=== PATIENT | female | born 1985 | race Caucasian/White ===

== ENCOUNTER 2021-04-04 11:17 | Emergency (ER) | payer OTHER, MEDICAID, SELFPAY ==
[2021-04-04 11:52] VITALS: BP 145/98; PULSE 93; RESP 18; TEMP 36.6; O2SAT 99; BMI 23.8
[2021-04-04] MEDS: diazePAM 5 MG TABLET 10 MG PO ×2 (13:13→14:40)
[2021-04-04] MEDS: ONDANSETRON 4 MG ODT SL (13:13)
[2021-04-04 13:40] LABS: Bacteria Urine Many (>30); Culture Indicated Urine Specimen Cultured; RBC Urine 5-10/HPF (0-5/HPF); Squamous Epithelial Cell Urine 1-5 /HPF (0-5/HPF); WBC Urine 30-100/HPF (0-5/HPF)
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
[2021-04-04 14:23] LABS: HCG Quantitative /Beta subunit 173.6 mIU/mL
[2021-04-04] MEDS: NITROFURANTOIN ER 100 MG CAPSULE PO (14:40)
== END 2021-04-04 15:01 | disposition home or self-care (01) ==
PROVIDERS: Emergency Provider Nurse Practitioner Critical Care Medicine
DX: Z76.0 Encounter for issue of repeat prescription (principal); R11.2 Nausea with vomiting, unspecified; O03.9 Complete or unspecified spontaneous abortion without complication
CPT/HCPCS: 36415; 81003; 81015; 81025; 84702; 87077; 87086; 87147; 99283

== ENCOUNTER → 2021-04-26 08:37 | Outpatient (CLI) | payer OTHER, MEDICAID, SELFPAY ==
[2021-04-26 09:43] LABS: Hematocrit 37.1 % (36-46); Hemoglobin 12.4 g/dL (12.0-16.0); Mean Corpuscular HGB Conc 33.5 % (30-36); Mean Corpuscular Hemoglobin 31.4 PG (26-34); Mean Corpuscular Volume 93.6 fL (80-100); Platelet Count 244 X10^3/uL (150-400); Red Blood Cell Count 3.96 X10^6/uL (4.0-5.2); Red Cell Distribution Width 13.2 % (11.6-14.8); White Blood Cell Count 4.7 X10^3/uL (4.5-11.0)
[2021-04-26 10:21] LABS: Alanine Aminotransferase 10 IU/L (<35); Albumin Globulin Ratio 1.5 (1.0-2.8); Alkaline Phosphatase 70 U/L (38-126); Aspartate Aminotransferase 16 IU/L (14-36); BUN Creatinine Ratio 13.3 (6-22); Bilirubin Total 0.2 mg/dL (0.2-1.3); Blood Urea Nitrogen 10 mg/dL (7-17); Calcium 8.5 mg/dL (8.4-10.2); Carbon Dioxide 28 mmol/L (22-32); Chloride 102 mmol/L (98-107); Cholesterol 160 mg/dL (140-199); Estimated Glomerular Filt Rate > 60.0 mL/min (>60); Globulin 2.7 g/dL (1.7-4.1); Glucose 99 mg/dL (70-100); HDL Cholesterol 71 mg/dL (40-60); HEMOLYSIS < 15 (0-50); LDL Cholesterol Calculated 80 mg/dL (<100); Potassium 3.7 mmol/L (3.4-5.1); Sodium 137 mmol/L (137-145); Total Protein 6.7 g/dL (6.3-8.2); Triglycerides 44 mg/dL (35-150)
[2021-04-26 10:37] LABS: Vitamin D 25 Hydroxy (D3) 36.9 ng/mL (30.0-100.0)
[2021-04-26 10:52] LABS: TSH w/ Reflex to FT4 1.67 uIU/mL (0.47-4.68)
== END ==
PROVIDERS: PCP Registered Nurse Diabetes Educator; Referring Provider Registered Nurse Diabetes Educator; Visit Provider Registered Nurse Diabetes Educator
DX: E55.9 Vitamin D deficiency, unspecified (principal); F33.1 Major depressive disorder, recurrent, moderate; R79.89 Other specified abnormal findings of blood chemistry; Z00.00 Encounter for general adult medical examination without abnormal findings
CPT/HCPCS: 36415; 80053; 80061; 82306; 84443; 85027

== ENCOUNTER 2021-06-18 19:00 | Emergency (ER) | payer OTHER, MEDICAID, SELFPAY ==
[2021-06-18 19:28] VITALS: BP 128/61; PULSE 85; RESP 24; TEMP 36.2; O2SAT 100
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
[2021-06-18 21:07] VITALS: BP 114/59; PULSE 63; O2SAT 98
[2021-06-18] MEDS: CYCLOBENZAPRINE 10 MG PREPACK 1 BOTTLE MISC (21:08)
== END 2021-06-18 21:09 | disposition home or self-care (01) ==
PROVIDERS: Emergency Provider Emergency Medicine; PCP Registered Nurse Diabetes Educator
DX: M54.6 Pain in thoracic spine (principal)
CPT/HCPCS: 99281

== ENCOUNTER → 2021-08-23 11:03 | Outpatient (CLI) | payer OTHER, MEDICAID, SELFPAY ==
--- NOTE | 2021-08-23 11:04 | DI.RAD.S_ITS ---
PROCEDURE: XR CERVICAL SPINE 2V OR 3V INDICATIONS: eval neck pain with BUE radiculopathy TECHNIQUE: 4 view(s) of the cervical spine were acquired. COMPARISON: None. FINDINGS: Bones: No fractures or dislocations to the C7-T1 level. Straightening of normal cervical lordosis is seen. The lateral masses of C1 appear intact on the odontoid view. No suspicious bony lesions. Soft tissues: No prevertebral soft tissue swelling. IMPRESSION: Straightening of normal cervical lordosis. No fracture or dislocation. No significant degenerative disc disease. Dictated by: Ravindra Romero M.D. on 08/23/2021 at 11:37 Approved by: Ravindra Romero M.D. on 08/23/2021 at 11:38
== END ==
PROVIDERS: PCP Registered Nurse Diabetes Educator; Referring Provider Registered Nurse Diabetes Educator; Visit Provider Registered Nurse Diabetes Educator
DX: M54.12 Radiculopathy, cervical region (principal)
CPT/HCPCS: 72040

== ENCOUNTER 2023-03-08 19:19 | Emergency (ER) | payer OTHER, MEDICAID, SELFPAY ==
[2023-03-08 19:26] VITALS: BP 136/92; PULSE 105; RESP 16; TEMP 36.6; O2SAT 97; BMI 22.6
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
[2023-03-08 19:44] VITALS: BP 122/88; PULSE 86; RESP 19; O2SAT 100
[2023-03-08 20:13] VITALS: BP 104/70; PULSE 82; RESP 16; O2SAT 100
[2023-03-08 20:30] VITALS: BP 111/64; PULSE 95; RESP 16; O2SAT 98
[2023-03-08] MEDS: NALOXONE 4 MG NASAL SPRAY MISC (21:06)
== END 2023-03-08 21:08 | disposition home or self-care (01) ==
PROVIDERS: Emergency Provider Emergency Medicine; PCP Registered Nurse Diabetes Educator
DX: T40.411A Poisoning by fentanyl or fentanyl analogs, accidental (unintentional), initial encounter (principal)
CPT/HCPCS: 99283; A9270

== ENCOUNTER → 2023-03-19 14:05 | Outpatient (CLI) | payer OTHER, SELFPAY ==
[2023-03-19 14:23] LABS: Ur Creatinine Normal (Normal); Ur Specific Gravity Normal (Normal); Urine pH Normal (Normal)
[2023-03-19 14:24] LABS: UR Morphine/Opiate cutoff 300 Negative (Negative); Urine Amphetamines Negative (Negative); Urine Barbiturates Negative (Negative); Urine Benzodiazepines Positive (Negative); Urine Cocaine Negative (Negative); Urine MDMA Negative (Negative); Urine Methadone Negative (Negative); Urine Methamphetamines Negative (Negative); Urine Oxycodone Negative (Negative); Urine Phencyclidine Negative (Negative); Urine Tetrahydrocannabinol Negative (Negative); Urine Tricyclic Antidepressant Positive (Negative)
== END ==
PROVIDERS: PCP Registered Nurse Diabetes Educator; Visit Provider Registered Nurse Diabetes Educator
DX: Z79.899 Other long term (current) drug therapy (principal); Z51.81 Encounter for therapeutic drug level monitoring
CPT/HCPCS: 80305

== ENCOUNTER 2023-06-05 22:11 | Emergency (ER) | payer OTHER, SELFPAY ==
[2023-06-05 22:13] VITALS: PULSE 121; O2SAT 96
[2023-06-05 22:14] VITALS: BP 134/83; PULSE 130; O2SAT 94
[2023-06-05 22:26] VITALS: BP 134/83; PULSE 125; RESP 20; TEMP 36.8; O2SAT 96; BMI 21.9
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
[2023-06-06 05:09] VITALS: BP 109/59; PULSE 110; RESP 18; TEMP 36.6; O2SAT 100
== END 2023-06-06 05:15 | disposition home or self-care (01) ==
PROVIDERS: Emergency Provider Emergency Medicine; PCP Registered Nurse Diabetes Educator
DX: F10.129 Alcohol abuse with intoxication, unspecified (principal); F41.8 Other specified anxiety disorders
CPT/HCPCS: 99284